=== PATIENT | female | born 1985 | race Caucasian/White ===

== ENCOUNTER 2017-12-08 08:26 | Inpatient (IN) | payer OTHER ==
[2017-12-08] VITALS (8 sets, daily range): BP systolic 112–174; BP diastolic 72–98; PULSE 84–120; TEMP 37.1–38.7; O2SAT 93–98; Ht 162.6 cm; Wt 126.1 kg
[~2017-12-08] VITALS: Ht 162.6 cm; Wt 126.1 kg
[~2017-12-08 08:26] MED LIST: CIPROFLOXACIN 400MG / 200ML D5W IV SCH
[2017-12-08] MEDS ORDERED: KETOROLAC TROMETHAMINE 30 MG/ML VIAL IV STA (09:22)
[2017-12-08] MEDS ORDERED: ONDANSETRON INJ 2 MG/ML 2 ML VIAL IV STA (09:22)
[2017-12-08 10:06] LABS: BASO % 0.1 %; BASO ABS # 0.01 K/uL (0-0.2); EOS % 0.3 %; EOS ABS # 0.04 K/uL (0-0.5); HEMATOCRIT 41.3 % (37-47); HEMOGLOBIN 14.4 g/dL (12.0-16.0); IG# 0.06 K/uL (0.00-0.02); LYMPH % 10.2 %; LYMPH ABS # 1.49 K/uL (1.2-3.4); MEAN CELL VOLUME 87.7 fL (80-100); MEAN CORPUSCULAR HEMOGLOBIN 30.6 pg (25-34); MEAN CORPUSCULAR HGB CONC 34.9 g/dl (32-36); MONO % 5.3 %; MONO ABS # 0.77 K/uL (0.11-0.59); NEUT % 83.7 %; PLATELET COUNT 270 K/uL (130-400); RED CELL DISTRIBUTION WIDTH CV 12.5 % (11.5-14.5); RED CELL DISTRIBUTION WIDTH SD 40.1 fL (36.4-46.3); WHITE BLOOD COUNT 14.57 K/uL (4.8-10.8)
--- NOTE | 2017-12-08 10:07 | DIAGNOSTIC IMAGING REPORT ---
CT OF THE ABDOMEN AND PELVIS WITHOUT CONTRAST, STONE PROTOCOL CLINICAL HISTORY: Right flank pain. COMPARISON STUDY: None. TECHNIQUE: Helical axial images of the abdomen and pelvis were obtained without IV or oral contrast according to renal stone protocol. A dose lowering technique was utilized adhering to the principles of ALARA. FINDINGS: Lung bases are clear. The gallbladder surgically absent. There is no biliary ductal dilatation. A 1.2 cm low-attenuation left adrenal nodule represents an adenoma. Unenhanced images of the spleen, right adrenal gland and pancreas are unremarkable. A cannulated screw within the proximal left femur is noted. There is sclerosis along the sacral and iliac aspects of both sacroiliac joints with gas within the sacroiliac joints. The findings may reflect sacroiliitis. Note is made of moderate to severe right hydronephrosis due to a large right ureteropelvic junction calculus. This could reflect one large calculus or 2 adjacent calculi. In aggregate, these measure 3 x 1.5 x 0.8 cm. There is minimal adjacent gas within the inferior right renal pelvis. There is moderate right perinephric infiltration. 3 punctate distal right ureteral calculi measure up to 2 mm. There are several punctate right renal calculi. There are no left ureteral calculi. There is no evidence for a bowel obstruction. The appendix is normal. IMPRESSION: Moderate to severe right hydroureteronephrosis due to a right ureteropelvic junction calculus/calculi that measure 3 x 1.5 x 0.8 cm in aggregate. Trace associated gas within the inferior right renal pelvis raises the possibility of superimposed infectious pyelitis. Moderate right perinephric infiltration. Three punctate distal right ureteral calculi. Electronically signed by: Constantino Hutchinson M.D. 12/08/2017 10:05 AM Dictated Date/Time: 12/08/2017 9:48 AM
[2017-12-08 10:21] LABS: CREATININE 0.85 mg/dl (0.60-1.20)
[2017-12-08] MEDS ORDERED: CEFTRIAXONE SOD INJ 1 GM ADDVIAL IV STA (10:35)
[2017-12-08] MEDS ORDERED: LABE100T23 PO (11:02)
[2017-12-08] MEDS ORDERED: SODIUM CHLORIDE 0.9% 1000ML 1,000 ML IV STA ×2 (11:03)
--- NOTE | 2017-12-08 12:12 | Urology Consultation ---
History General Date of Service: Dec 08, 2017. Chief Complaint: back pain, n/v Primary Care Physician: No Doctor, Assigned Pt seen a urologist before?: No History of Present Illness 32 yo female presents to [facility] with c/o low back pain and n/v this morning. Denies any dysuria or hematuria. CT on admission showing a large right UPJ calculus vs calculi with possible pyelitis. Possible small distal right ureteral stone as well. She has no previous hx of stones. She reports subjective f/c at home as well as n/v. Imaging Imaging: CT Laboratory Last 24 Hours Test 12/08/17 08:35 12/08/17 09:30 Urine Color YELLOW Urine Appearance CLEAR Urine pH 7.0 Urine Specific [place] 1.024 Urine Protein NEG Urine Glucose (UA) NEG Urine Ketones NEG Urine Occult Blood NEG Urine Nitrite POS Urine Bilirubin NEG Urine Urobilinogen NEG Urine Leukocyte Esterase NEG Urine WBC (Auto) 1-5 /hpf Urine RBC (Auto) 0-4 /hpf Urine Hyaline Casts (Auto) 1-5 /lpf Urine Epithelial Cells (Auto) >30 /lpf Urine Bacteria (Auto) 4+ Urine Test NEG White Blood Count 14.57 K/uL Red Blood Count 4.71 M/uL Hemoglobin 14.4 g/dL Hematocrit 41.3 % Mean Corpuscular Volume 87.7 fL Mean Corpuscular Hemoglobin 30.6 pg Mean Corpuscular Hemoglobin Concent 34.9 g/dl Platelet Count 270 K/uL Mean Platelet Volume 10.0 fL Neutrophils (%) (Auto) 83.7 % Lymphocytes (%) (Auto) 10.2 % Monocytes (%) (Auto) 5.3 % Eosinophils (%) (Auto) 0.3 % Basophils (%) (Auto) 0.1 % Neutrophils # (Auto) 12.20 K/uL Lymphocytes # (Auto) 1.49 K/uL Monocytes # (Auto) 0.77 K/uL Eosinophils # (Auto) 0.04 K/uL Basophils # (Auto) 0.01 K/uL RDW Standard Deviation 40.1 fL RDW Coefficient of Variation 12.5 % Immature Granulocyte % (Auto) 0.4 % Immature Granulocyte # (Auto) 0.06 K/uL Sodium Level 138 mmol/L Potassium Level 4.0 mmol/L Chloride Level 105 mmol/L Carbon Dioxide Level 25 mmol/L Anion Gap 8.0 mmol/L Blood Urea Nitrogen 13 mg/dl Creatinine 0.85 mg/dl Est Creatinine Clear Calc Drug Dose 122.6 ml/min Estimated GFR () 103.6 Estimated GFR (Non- 89.4 BUN/Creatinine Ratio 15.1 Random Glucose 127 mg/dl Calcium Level 9.0 mg/dl Problem List Medical Problems: (1) Hypertension Status: Chronic (2) Morbid obesity with BMI of 45.0-49.9, adult Status: Chronic (3) PCOS (polycystic ovarian syndrome) Status: Chronic Past History hypertension Past Surgical History: (x 3 ), cholecystectomy, orthopedic surgery ( screw placed in left hip) Family History diabetes, prostate cancer Social History Smoking: less than 1 pack/day (less than 1/2 pack per day per pt) Alcohol: never Drug use: none Marital status: in relationship (engaged ) Allergies Coded Allergies: No Known Allergies (Unverified , 12/08/17) Medications Home Medications: Home Meds and Scripts Medications Dose Route/Sig Max Daily Dose Days Date Category Labetalol Hcl 100 Mg Tab 50 Mg PO BID 12/08/17 Reported Inpatient Medications: Current Inpatient Medications Medications (Trade) Dose Ordered Sig/Michelle Route Start Time Stop Time Status Last Admin Dose Admin Sodium Chloride 1,000 ml @ 250 mls/hr Q4H STAT IV 12/08/17 11:03 12/08/17 15:02 Ciprofloxacin/ Dextrose (Cipro / D5W) 400 mg PREOP ONCE IV 12/08/17 12:00 12/08/17 12:01 UNV Review of Systems Review of Systems Constitutional: No fever, No chills Eyes: No double vision Neurological: No dizzy Endocrine: No excessive thirst Gastrointestinal: + nausea, + vomiting, No abdominal pain Cardiovascular: No chest pain Respiratory: No shortness of breath Skin: No rash Musculoskeletal: + back pain Female : No painful urination, No blood in urine Physical Exam Vital Signs: Vital Signs Past 12 Hours Date Time Temp Pulse Resp B/P (MAP) Pulse Ox O2 Delivery O2 Flow Rate FiO2 12/08/17 10:20 37.2 82 18 159/95 98 Room Air 12/08/17 08:28 36.8 58 18 191/101 99 Room Air Physical Exam: General Appearance: no apparent distress, + obese Eyes: bilateral eyes normal inspection ENT: hearing grossly normal Neck: no JVD Respiratory/Chest: no respiratory distress, no accessory muscle use Cardiovascular: no JVD Extremities: normal inspection Neurologic/Psychiatric: alert, normal mood/affect, oriented x 3 Skin: normal color Assessment & Plan Assessment & Plan Treatment Planned: cystoscopy w/ stent A/P: Large right UPJ calculus vs calculi; ? pyelitis The pt is currently afebrile. Stone aggregate too large to pass on own, and ? pyelitis on CT concerning for infection. Recommended she have a cystoscopy with right ureteral stent placement at this time. Risks and benefits of the procedure discussed with the pt. All questions answered. Pt agrees to the procedure at this time. Will obtain a pre-op chest x-ray and EKG. Urine and blood cultures pending. Will order Cipro pre-op. Thanks for the consult. Hopeful the pt will be able to be d/c'd home tomorrow. Will continue to follow along with primary service. ATTENDING: Patient seen and independently assessed. Reviewed imaging. Large right stone with emphysematous pyelitis. Risks and benefits discussed at length. Intermittent right flank pain for 1-2 months. NPO and consented for urgent cystoscopy with right stent placement. Patient agreeable and consented.
--- NOTE | 2017-12-08 12:33 | DIAGNOSTIC IMAGING REPORT ---
CHEST ONE VIEW PORTABLE HISTORY: pre-op COMPARISON: None. FINDINGS: There are low lung volumes. The heart is top normal in size. The lungs are clear. No pleural effusions. No pneumothorax. IMPRESSION: No acute process. Electronically signed by: Lalo Morris M.D. 12/08/2017 12:32 PM Dictated Date/Time: 12/08/2017 12:30 PM
[2017-12-08] MEDS ORDERED: ACET-1311 PO (12:37)
[2017-12-08] MEDS ORDERED: MoRPHine SULFATE 2 MG/ML CARP IV PRN (12:45)
[2017-12-08] MEDS ORDERED: POLYETHYLENE (MIRALAX) 17 GM PACK PO PRN (12:45)
[2017-12-08] MEDS ORDERED: ZOLPIDEM TARTRATE 5 MG TAB PO PRN ×2 (12:45)
[2017-12-08] MEDS ORDERED: ACETAMINOPHEN 325 MG TAB PO PRN (12:45)
[2017-12-08] MEDS ORDERED: MAGNESIUM HYDROXIDE SUSP 30 ML UDC PO PRN (12:45)
[2017-12-08] MEDS ORDERED: CEFEPIME IV 2,000 MG in DEXTROSE 5% 100ML 100 ML IV SCH (12:45)
[2017-12-08] MEDS ORDERED: ALUMINUM/MAGNESIUM/SIMETH (MAALOX MAX) 30 ML UDC PO PRN (12:45)
[2017-12-08] MEDS ORDERED: ONDANSETRON INJ 2 MG/ML 2 ML VIAL IV PRN ×2 (12:45→15:15)
[2017-12-08] MEDS ORDERED: Cysto-Conray II 17.2% 250ML BOTTLE ONE (13:16)
[2017-12-08] MEDS ORDERED: ONDANSETRON INJ 2 MG/ML 2 ML VIAL ONE (13:58)
[2017-12-08] MEDS ORDERED: DEXAMETHASONE SOD INJ 4 MG/ML VIAL ONE (13:58)
[2017-12-08] MEDS ORDERED: LIDOCAINE HCL 2% 2 ML VIAL (20MG/ML) ONE (13:58)
[2017-12-08] MEDS ORDERED: PROPOFOL IV EMULSION 10 MG/ML 20 ML VIAL IV ONE (13:58)
[2017-12-08] MEDS ORDERED: KETAMINE HCL INJ 50 MG/ML 10 ML VIAL ONE (13:59)
[2017-12-08] MEDS ORDERED: MIDAZOLAM HCL 1 MG/ML 2ML VIAL ONE (13:59)
[2017-12-08] MEDS ORDERED: FENTANYL CITRATE INJ 50 MCG/1 ML 2 ML VIAL ONE ×2 (13:59→14:29)
--- NOTE | 2017-12-08 14:41 | [facility] Operative Report ---
Operative Report Operative Date Dec 08, 2017. Pre-Operative Diagnosis Right Stone and Pyelonephritis Post-Operative Diagnosis Same Procedure(s) Performed Cystoscopy with Right Stent and aspiration Surgeon Ryan Estimated Blood Loss Minimal Findings Obstructed right collecting system Specimens Right Purulent Urine Renal Pelvis Drains 6 x 24 Double J on Right Anesthesia Type MAC Complication(s) none Disposition Recovery Room / PACU Indications Obstructing stone with air in collecting system. Patient agreeable and consented. Description of Procedure Patient was consented and brought back to the operating room. Patient was placed under anesthesia in the supine position and moved to the dorsal lithotomy position. Patient was prepped and draped in the regular sterile fashion. A time out was completed. A 30degree Cystoscope was placed into the bladder and the entire bladder was examined. The UO's were identified. The right was cannulized with a catheter and as aspiration of urine was completed. This was grossly purulent. The ureteral length was estimated. A wire was then placed. With the wire in place, a 6 x [24] Double J stent was placed. It was confirmed with fluoroscopy. With the stent in place, the bladder was emptied. The scope was removed. The patient was cleaned, aroused from anesthesia, and transferred to the pacu in stable condition having tolerated the procedure well with no complications. I was present and participated in all aspects of the procedure. The patient will be monitored in the PACU until transferred. I attest to the content of the Intraoperative Record and any orders documented therein. Any exceptions are noted below.
--- NOTE | 2017-12-08 14:42 | History and Physical ---
History & Physical Date & Time of Service: Dec 08, 2017 at 14:27 Chief Complaint: Fever, Vomiting, Lower Back And Abdominal Pain Primary Care Physician: No Doctor, Assigned History of Present Illness Source: patient, hospital records 52 years old female with past medical history of hypertension, morbid obesity, section 3 and cholecystectomy. Patient presented to the ED with severe right flank pain. She said that pain started about a month ago but was intermittent and mild in nature. Today she woke up from sleep with severe stabbing pain 10/10 associated with nausea/vomiting. She vomited once. Also had chills and fever. Denies any history of previous renal stones. Denies any burning sensation in the urine or blood, denies any urgency/frequency Plan of note upon my exam she was medicated and she did not have any abdominal or costovertebral angle tenderness Lives with her fianc Denies alcohol Use Currently active smoker. History of diabetes in her grandmother and mother. Past Medical/Surgical History Medical Problems: (1) Hypertension Status: Chronic (2) Morbid obesity with BMI of 45.0-49.9, adult Status: Chronic (3) PCOS (polycystic ovarian syndrome) Status: Chronic Surgical Problems: (1) History of section Status: Resolved (2) History of cholecystectomy Status: Resolved Social History Smoking Status: Current Every Day Smoker Marital Status: in relationship (engaged ) Allergies Coded Allergies: No Known Allergies (Unverified , 12/08/17) Home Medications Scheduled Labetalol Hcl (Labetalol Hcl), 25 MG PO QAM Miscellaneous Medications Acetaminophen (Tylenol), 650 MG PO Review of Systems Constitutional: + fever, + chills, + weakness, + fatigue Eyes: No worsening of vision, No eye pain, No redness, No discharge, No diplopia, No problem reported ENT: No hearing loss, No unusual epistaxis, No nasal symptoms, No sore throat, No tinnitus, No dental problems, No trouble swallowing, No problem reported Respiratory: No cough, No sputum, No wheezing, No shortness of breath, No dyspnea on exertion, No dyspnea at rest, No hemoptysis, No problem reported Cardiovascular: No chest pain, No orthopnea, No PND, No edema, No claudication , No palpitations, No problem reported Abdomen: + pain, + nausea, + vomiting, No diarrhea, No constipation, No GI bleeding, No problem reported Musculoskeletal: No joint pain, No muscle pain, No swelling, No calf pain, No problem reported Genitourinary - Female: No dysuria, No urinary frequency, No urinary urgency, No urinary incontinence, No urinary retention, No hematuria, No dysmenorrhea, No menorrhagia, No metrorrhagia, No rash, No vaginal bleeding, No vaginal discharge, No vaginal itching, No vulvodynia, No , No problem reported Neurologic: No memory loss, No paralysis, No weakness, No numbness/tingling, No vertigo, No balance problems, No problem reported Psychiatric: No depression symptoms, No anhedonism, No anxiety, No insomnia, No substance abuse, No problem reported Endocrine: No fatigue, No excessive thirst, No excessive urination, No problem reported Hematologic / Lymphatic: No abnormal bleeding/bruising, No clotting problems, No swollen lymph nodes, No night sweats, No problem reported Integumentary: No rash, No itch, No new/changing skin lesions, No color change , No bleeding, No problem reported Allergic / Immunologic: No environmental allergies, No seasonal allergies, No pet sensitivities, No food allergies, No hives, No frequent infections, No poor healing, No prolonged convalescence, No problem reported Physical Exam Vital Signs Date Time Temp Pulse Resp B/P (MAP) Pulse Ox O2 Delivery O2 Flow Rate FiO2 12/08/17 10:20 37.2 82 18 159/95 98 Room Air 12/08/17 08:28 36.8 58 18 191/101 99 Room Air General Appearance: + mild distress, + obese Head: normocephalic, atraumatic Eyes: normal inspection, EOMI ENT: normal ENT inspection, hearing grossly normal Neck: supple Respiratory/Chest: chest non-tender, lungs clear, normal breath sounds, no respiratory distress, no accessory muscle use Cardiovascular: regular rate, rhythm, no edema, no gallop, no JVD, no murmur, normal peripheral pulses Abdomen/GI: normal bowel sounds, non tender, soft, no organomegaly, no pulsatile mass Back: normal inspection, no CVA tenderness, no muscle spasm Extremities/Musculoskelatal: normal inspection, no calf tenderness, normal capillary refill, no pedal edema, normal range of motion Neurologic/Psych: repair miller II-XII nml as tested, no motor/sensory deficits, alert, normal mood/affect, normal reflexes, oriented x 3 Skin: normal color, warm/dry, no rash Diagnostics Laboratory Results Results Past 24 Hours Test 12/08/17 08:35 12/08/17 09:30 Range/Units Urine Color YELLOW Urine Appearance CLEAR CLEAR Urine pH 7.0 4.5-7.5 Urine Specific [place] 1.024 1.000-1.030 Urine Protein NEG NEG Urine Glucose (UA) NEG NEG Urine Ketones NEG NEG Urine Occult Blood NEG NEG Urine Nitrite POS NEG Urine Bilirubin NEG NEG Urine Urobilinogen NEG NEG Urine Leukocyte Esterase NEG NEG Urine WBC (Auto) 1-5 0-5 /hpf Urine RBC (Auto) 0-4 0-4 /hpf Urine Hyaline Casts (Auto) 1-5 0-5 /lpf Urine Epithelial Cells (Auto) >30 0-5 /lpf Urine Bacteria (Auto) 4+ NEG Urine Test NEG NEG White Blood Count 14.57 4.8-10.8 K/uL Red Blood Count 4.71 4.2-5.4 M/uL Hemoglobin 14.4 12.0-16.0 g/dL Hematocrit 41.3 37-47 % Mean Corpuscular Volume 87.7 80-100 fL Mean Corpuscular Hemoglobin 30.6 25-34 pg Mean Corpuscular Hemoglobin Concent 34.9 32-36 g/dl Platelet Count 270 130-400 K/uL Mean Platelet Volume 10.0 7.4-10.4 fL Neutrophils (%) (Auto) 83.7 % Lymphocytes (%) (Auto) 10.2 % Monocytes (%) (Auto) 5.3 % Eosinophils (%) (Auto) 0.3 % Basophils (%) (Auto) 0.1 % Neutrophils # (Auto) 12.20 1.4-6.5 K/uL Lymphocytes # (Auto) 1.49 1.2-3.4 K/uL Monocytes # (Auto) 0.77 0.11-0.59 K/uL Eosinophils # (Auto) 0.04 0-0.5 K/uL Basophils # (Auto) 0.01 0-0.2 K/uL RDW Standard Deviation 40.1 36.4-46.3 fL RDW Coefficient of Variation 12.5 11.5-14.5 % Immature Granulocyte % (Auto) 0.4 % Immature Granulocyte # (Auto) 0.06 0.00-0.02 K/uL Sodium Level 138 136-145 mmol/L Potassium Level 4.0 3.5-5.1 mmol/L Chloride Level 105 98-107 mmol/L Carbon Dioxide Level 25 21-32 mmol/L Anion Gap 8.0 3-11 mmol/L Blood Urea Nitrogen 13 7-18 mg/dl Creatinine 0.85 0.60-1.20 mg/dl Est Creatinine Clear Calc Drug Dose 122.6 ml/min Estimated GFR () 103.6 Estimated GFR (Non- 89.4 BUN/Creatinine Ratio 15.1 10-20 Random Glucose 127 70-99 mg/dl Calcium Level 9.0 8.5-10.1 mg/dl Microbiology Results 12/08/17 Blood Culture, Received Pending 12/08/17 Blood Culture, Received Pending 12/08/17 Urine Culture, Received Pending Impression Assessment and Plan 52-year-old female with past medical history of hypertension, morbid obesity, cholecystectomy, section 3 tobacco abuse presented to the hospital on 12/08/2017 with right flank pain and chills Assessment Obstructive uropathy, 3 x 1.5 by 0.8 centimeter calculi/calculus with severe right hydronephrosis Sepsis present on admission secondary to below Complicated UTI present on admission Right pyelonephritis/some gas was detected on CAT scan, raising the question of emphysematous pyelonephritis Hypertension/essential Morbid obesity with clinically suspected obstructive sleep apnea Sinus Bradycardia likely secondary to labetalol History of cholecystectomy Stress section 3 History of left hip dislocation in childhood status post nuria fixation History of polycystic ovary syndrome Tobacco abuse Plan Patient clinically does not appear to be very sick, I doubt emphysematous pyelonephritis but will empirically treat her with cefepime IV fluid hydration Patient urology consult, will go for urgent stent Continue labetalol for now and monitor blood pressure/heart rate Check hemoglobin A1c rule out underlying diabetes Blood cultures/urine culture Probiotics SCD boot/heparin for DVT prophylaxis VTE Prophylaxis VTE Risk Assessment Done? Y/N: Yes Risk Level: Moderate
--- NOTE | 2017-12-08 14:48 | EMERGENCY ROOM VISIT NOTE ---
History First contact with patient: 08:55 Chief Complaint: VOMITING Stated Complaint: FEVER, VOMITING, LOWER BACK AND ABDOMINAL PAIN Nursing Triage Summary: Pt reports right flank and right lower abd pain x 1 mo. Cold Chills. Emesis this morning. Denies nausea at present time. Denies urinary s/sx. History of Present Illness Patient is a 32-year-old white female who presents to emergency department for evaluation of right lower quadrant abdominal pain radiating to her right back. She has had symptoms for the last several weeks, she reports about a month. She states her last menstrual period was 09/23/2017. She does have a history of PCOS. She reports that she took home tests which were negative. She reports loose bowel movements, denies any urinary symptoms, no vaginal discharge or concerns for sexually transmitted infections. Today, at 2:00 in the morning, she states the pain woke her from sleep. She had hot and cold flashes and reports that she vomited once just prior to arrival. She rates her pain a 9/10 presently. She is status post cholecystectomy. She denies any personal or family history of kidney stones. She had tried taking Tylenol and naproxen for her symptoms over the last several weeks with minimal relief. Review of Systems Review of systems as per HPI. All other systems reviewed were negative. 10 systems reviewed. Past Medical/Surgical History Medical Problems: (1) Hypertension (2) Morbid obesity with BMI of 45.0-49.9, adult (3) PCOS (polycystic ovarian syndrome) (4) Pyelonephritis (5) UTI (urinary tract infection) Surgical Problems: (1) History of section (2) History of cholecystectomy Electronic medical records are reviewed and summarized as above/below. See Problem List. Social History Smoking Status: Current Every Day Smoker Alcohol Use: none Marital Status: in relationship Housing Status: lives with significant other Occupation Status: employed Current/Historical Medications Scheduled Labetalol Hcl (Labetalol Hcl), 25 MG PO QAM Miscellaneous Medications Acetaminophen (Tylenol), 650 MG PO Physical Exam Vital Signs Date Time Temp Pulse Resp B/P (MAP) Pulse Ox O2 Delivery O2 Flow Rate FiO2 12/08/17 10:20 37.2 82 18 159/95 98 Room Air 12/08/17 08:28 36.8 58 18 191/101 99 Room Air Physical Exam CONSTITUTIONAL: Patient is a morbidly obese 32-year-old white female who is awake and alert and in no acute distress. EYES: Pupils equal, round, reactive to light and accommodation. EOMs intact without nystagmus. Sclera are anicteric. ENT: Tympanic membranes intact, with normal landmarks. External canals are clear. Oral and nasopharynx are clear. Mucous membranes are moist, no lesions , tongue and gums appear normal. NECK: No bruits auscultated. Supple without lymphadenopathy. No thyromegaly. No meningeal signs. Full active range of motion without discomfort. CARDIOVASCULAR: Regular rate and rhythm, with normal S1 and S2, no murmur or gallop or rub is heard. No carotid bruits auscultated. No JVD. Peripheral pulses easily palpable. RESPIRATORY: Breath sounds equal and clear to auscultation without wheezes, rales, or rhonchi heard. Full and equal chest expansion without accessory muscle use or retractions. ABDOMEN: Bowel sounds are present. Well-healed surgical scars are noted. Abdomen is soft, obese, mildly tender in the right mid abdomen, without guarding , rebound or rigidity. INTEGUMENTARY: No lesions or rash, normal skin turgor. LYMPH: No lymphadenopathy. Medical Decision & Procedures ER Provider Diagnostic Interpretation: CT OF THE ABDOMEN AND PELVIS WITHOUT CONTRAST, STONE PROTOCOL CLINICAL HISTORY: Right flank pain. COMPARISON STUDY: None. TECHNIQUE: Helical axial images of the abdomen and pelvis were obtained without IV or oral contrast according to renal stone protocol. A dose lowering technique was utilized adhering to the principles of ALARA. FINDINGS: Lung bases are clear. The gallbladder surgically absent. There is no biliary ductal dilatation. A 1.2 cm low-attenuation left adrenal nodule represents an adenoma. Unenhanced images of the spleen, right adrenal gland and pancreas are unremarkable. A cannulated screw within the proximal left femur is noted. There is sclerosis along the sacral and iliac aspects of both sacroiliac joints with gas within the sacroiliac joints. The findings may reflect sacroiliitis. Note is made of moderate to severe right hydronephrosis due to a large right ureteropelvic junction calculus. This could reflect one large calculus or 2 adjacent calculi. In aggregate, these measure 3 x 1.5 x 0.8 cm. There is minimal adjacent gas within the inferior right renal pelvis. There is moderate right perinephric infiltration. 3 punctate distal right ureteral calculi measure up to 2 mm. There are several punctate right renal calculi. There are no left ureteral calculi. There is no evidence for a bowel obstruction. The appendix is normal. IMPRESSION: Moderate to severe right hydroureteronephrosis due to a right ureteropelvic junction calculus/calculi that measure 3 x 1.5 x 0.8 cm in aggregate. Trace associated gas within the inferior right renal pelvis raises the possibility of superimposed infectious pyelitis. Moderate right perinephric infiltration. Three punctate distal right ureteral calculi. Laboratory Results 12/08/17 09:30 Red Blood Count 4.71, Mean Corpuscular Volume 87.7, Mean Corpuscular Hemoglobin 30.6, Mean Corpuscular Hemoglobin Concent 34.9, Mean Platelet Volume 10.0, Neutrophils (%) (Auto) 83.7, Lymphocytes (%) (Auto) 10.2, Monocytes (%) (Auto) 5.3, Eosinophils (%) (Auto) 0.3, Basophils (%) (Auto) 0.1, Neutrophils # (Auto) 12.20, Lymphocytes # (Auto) 1.49, Monocytes # (Auto) 0.77, Eosinophils # (Auto) 0.04, Basophils # (Auto) 0.01 12/08/17 09:30 Test 12/08/17 08:35 12/08/17 09:30 Urine Color YELLOW Urine Appearance CLEAR (CLEAR) Urine pH 7.0 (4.5-7.5) Urine Specific [place] 1.024 (1.000-1.030) Urine Protein NEG (NEG) Urine Glucose (UA) NEG (NEG) Urine Ketones NEG (NEG) Urine Occult Blood NEG (NEG) Urine Nitrite POS (NEG) Urine Bilirubin NEG (NEG) Urine Urobilinogen NEG (NEG) Urine Leukocyte Esterase NEG (NEG) Urine WBC (Auto) 1-5 /hpf (0-5) Urine RBC (Auto) 0-4 /hpf (0-4) Urine Hyaline Casts (Auto) 1-5 /lpf (0-5) Urine Epithelial Cells (Auto) >30 /lpf (0-5) Urine Bacteria (Auto) 4+ (NEG) Urine Test NEG (NEG) White Blood Count 14.57 K/uL (4.8-10.8) Red Blood Count 4.71 M/uL (4.2-5.4) Hemoglobin 14.4 g/dL (12.0-16.0) Hematocrit 41.3 % (37-47) Mean Corpuscular Volume 87.7 fL (80-100) Mean Corpuscular Hemoglobin 30.6 pg (25-34) Mean Corpuscular Hemoglobin Concent 34.9 g/dl (32-36) Platelet Count 270 K/uL (130-400) Mean Platelet Volume 10.0 fL (7.4-10.4) Neutrophils (%) (Auto) 83.7 % Lymphocytes (%) (Auto) 10.2 % Monocytes (%) (Auto) 5.3 % Eosinophils (%) (Auto) 0.3 % Basophils (%) (Auto) 0.1 % Neutrophils # (Auto) 12.20 K/uL (1.4-6.5) Lymphocytes # (Auto) 1.49 K/uL (1.2-3.4) Monocytes # (Auto) 0.77 K/uL (0.11-0.59) Eosinophils # (Auto) 0.04 K/uL (0-0.5) Basophils # (Auto) 0.01 K/uL (0-0.2) RDW Standard Deviation 40.1 fL (36.4-46.3) RDW Coefficient of Variation 12.5 % (11.5-14.5) Immature Granulocyte % (Auto) 0.4 % Immature Granulocyte # (Auto) 0.06 K/uL (0.00-0.02) Anion Gap 8.0 mmol/L (3-11) Est Creatinine Clear Calc Drug Dose 122.6 ml/min Estimated GFR () 103.6 Estimated GFR (Non- 89.4 BUN/Creatinine Ratio 15.1 (10-20) Calcium Level 9.0 mg/dl (8.5-10.1) Medications Administered Medications (Trade) Dose Ordered Sig/Michelle Route Start Time Stop Time Status Last Admin Dose Admin Ketorolac Tromethamine (Toradol Inj) 30 mg NOW STAT IV 12/08/17 09:22 12/08/17 09:24 DC 12/08/17 09:35 30 MG Ondansetron HCl (Zofran Inj) 4 mg NOW STAT IV 12/08/17 09:22 12/08/17 09:24 DC 12/08/17 09:34 4 MG Ceftriaxone Sodium (Rocephin Inj) 1 gm NOW STAT IV 12/08/17 10:35 12/08/17 10:36 DC 12/08/17 11:08 1 GM Sodium Chloride 1,000 ml @ 999 mls/hr Q1H1M STAT IV 12/08/17 11:03 12/08/17 12:03 DC 12/08/17 11:08 999 MLS/HR ED Course The patient was seen and evaluated as above. She has no old records at our facility for review. She presents the emergency department for evaluation of a several week history of right back and flank pain, with associated nausea and vomiting acutely today. She is afebrile and hemodynamically stable. IV lock was initiated and she was hydrated with normal saline solution. Laboratory studies were collected including CBC with differential, BMP and urinalysis. Urine negative CT tests have been performed and was negative. The patient was medicated with Toradol 30 mg and Zofran 4 mg IV. Given her right flank pain, CT scan of the abdomen and pelvis without contrast was ordered. Patient's urinalysis was positive for nitrates and 4+ bacteria. Urine culture was ordered given her symptoms, and is pending. She has a white count of 14,500 , with left shift and bandemia. H&H is normal. Band and creatinine are 13 and 0.85, electrolytes are without gross abnormality. Given the findings on urinalysis and leukocytosis, the patient was given ceftriaxone [address] scan of the abdomen and pelvis noted moderate to severe right hydroureteronephrosis due to a right ureteropelvic junction calculus/calculi measuring 3 x 1.5 x 0.8 cm in aggregate. There was trace associated gas within the right renal pelvis, moderate right perinephritic infiltration, concern for a superimposed infectious etiology was discussed. She does also have 3 punctate distal right ureteral calculi. All laboratory and diagnostic imaging studies were reviewed with attending physician, and discussed thoroughly with the patient. I was able discuss the patient with FELICITAS Rodriguez, with urology, who asked that the patient he made nothing by mouth and admitted to medicine. She came to the emergency department and assessed the patient, and the patient will be taken to the OR by Dr. Davis for cystoscopy and likely stenting. I did also discuss the patient with the [facility] Hospitalist, Dr. Hawkins, who placed admission orders. The patient remained hemodynamically stable, pending the OR per urology. Differential diagnoses entertained included UTI, pyelonephritis, renal colic, ovarian cyst, ovarian torsion, , ectopic , PID, tubo-ovarian abscess, appendicitis, bowel obstruction, perforation, among others. Medical Decision See ED Course. [place] Drug Monitoring Program Search Results: patient reviewed within database, no issues identified Medication Reconcilliation Current Medication List: was personally reviewed by me Blood Pressure Screening Patient's blood pressure: Elevated blood pressure Blood pressure disposition: Elevated BP felt to be situational Impression Primary Impression: Right ureteral calculus Additional Impression: Pyelonephritis Departure Information Dispostion Being Evaluated By Surgeon Referrals No Doctor, Assigned (PCP) Patient Instructions My [facility] Problem Qualifiers
--- NOTE | 2017-12-08 14:56 | DIAGNOSTIC IMAGING REPORT ---
KUB CLINICAL HISTORY: 32 years-old Female presenting with RT SIDE STENT PLACEMENT. TECHNIQUE: 2 fluoroscopic spot image(s) obtained as part of an intraoperative procedure. COMPARISON: CT performed earlier the same day. FINDINGS/IMPRESSION: A right double-J ureteral stent has been placed. Please see surgical report for further details. Dose area product (mGy.cm^2): 2779.3. Fluoroscopy time: 20.7 seconds. Number of fluoroscopic spot images: 2. Electronically signed by: Santos Banerjee M.D. 12/08/2017 2:55 PM Dictated Date/Time: 12/08/2017 2:54 PM
--- NOTE | 2017-12-08 15:03 | Anesthesiology Progress Note ---
Anesthesia Post Op Note Date & Time Dec 08, 2017 at 15:03 Vital Signs Vital Signs Past 12 Hours Date Time Temp Pulse Resp B/P (MAP) Pulse Ox O2 Delivery O2 Flow Rate FiO2 12/08/17 14:55 119 18 152/93 96 Room Air 12/08/17 14:47 37.6 119 18 128/90 96 Room Air 12/08/17 10:20 37.2 82 18 159/95 98 Room Air 12/08/17 08:28 36.8 58 18 191/101 99 Room Air Notes Mental Status: alert / awake / arousable, participated in evaluation Pt Amnestic to Procedure: Yes Nausea / Vomiting: adequately controlled Pain: adequately controlled Airway Patency, RR, SpO2: stable & adequate BP & HR: stable & adequate Hydration State: stable & adequate Anesthetic Complications: no major complications apparent
[2017-12-08] MEDS ORDERED: ATROPINE SULFATE 0.1 MG/ML 5ML SYR IV PRN (15:15)
[2017-12-08] MEDS ORDERED: FENTANYL CITRATE INJ 50 MCG/1 ML 2 ML VIAL IV PRN (15:15)
[2017-12-08] MEDS ORDERED: LABETALOL HCL IV 5 MG/ML 20ML IV PRN (15:15)
[2017-12-08 16:52] LABS: INR 0.9 (0.9-1.1)
[2017-12-08] MEDS: SODIUM CHLORIDE 0.9% 1000ML 1,000 ML IV SCH (18:20)
[2017-12-08] MEDS: CEFEPIME IV 2,000 MG in SYRINGE 7.5 ML IV SCH (18:20)
[2017-12-08] MEDS: LACTOBACILLUS ACIDOPHILUS (FLORANEX) TAB PO SCH (18:21)
[2017-12-08] MEDS: ACETAMINOPHEN 325 MG TAB PO PRN (19:53)
[2017-12-08] MEDS: HEPARIN SOD 5000 UNIT/0.5 ML CARP SQ SCH (22:42)
[2017-12-09] VITALS (8 sets, daily range): BP systolic 136–175; BP diastolic 81–99; PULSE 95–115; TEMP 36.8–39.3; O2SAT 93–97
[2017-12-09] MEDS: CEFEPIME IV 2,000 MG in SYRINGE 7.5 ML IV SCH ×3 (00:45→16:38)
[2017-12-09] MEDS: ACETAMINOPHEN 325 MG TAB PO PRN (04:18)
[2017-12-09] MEDS: HEPARIN SOD 5000 UNIT/0.5 ML CARP SQ SCH ×3 (05:29→21:35)
--- NOTE | 2017-12-09 08:04 | Progress Note ---
Subjective Date of Service: Dec 09, 2017. Subjective Pt evaluation today including: conversation w/ patient, chart review, lab review Voiding: no voiding problems 32 yo female s/p right ureteral stent placement yesterday. Pt reports she feels good this morning. States she only has some right flank pain when lying on that side. Denies n/v. + gross hematuria. She is noted to be febrile and blood cultures are preliminarily positive despite her feeling so well. UC&S pending. Problem List Medical Problems: (1) Hypertension Status: Chronic (2) Morbid obesity with BMI of 45.0-49.9, adult Status: Chronic (3) PCOS (polycystic ovarian syndrome) Status: Chronic (4) Right ureteral calculus Status: Acute Review of Systems Constitutional: + fever, No chills Respiratory: No shortness of breath Cardiac: No chest pain Abdomen: No pain, No nausea, No vomiting Female : + hematuria Heme: No abnormal bleeding/bruising Objective Vital Signs Date Time Temp Pulse Resp B/P (MAP) Pulse Ox O2 Delivery O2 Flow Rate FiO2 12/09/17 05:20 38.6 99 18 150/86 (107) 96 Room Air 12/09/17 04:11 38.5 108 16 164/81 (108) 95 Room Air 12/09/17 00:45 Room Air 12/08/17 22:52 37.3 84 18 112/72 (85) 97 Room Air 12/08/17 21:51 37.1 12/08/17 19:00 37.6 108 16 114/73 (87) 98 Room Air 12/08/17 17:59 38.2 120 18 137/81 (99) 97 Room Air 12/08/17 17:05 38.2 92 18 125/79 (94) 98 Room Air 12/08/17 16:30 38.7 101 18 137/86 (103) 97 Room Air 12/08/17 16:00 93 Room Air 12/08/17 16:00 37.2 20 174/98 93 Room Air 12/08/17 15:30 37.4 101 18 141/91 96 Room Air 12/08/17 15:15 37.4 107 18 157/91 96 Room Air 12/08/17 15:05 109 18 139/86 95 Room Air 12/08/17 14:55 119 18 152/93 96 Room Air 12/08/17 14:47 37.6 119 18 128/90 96 Room Air 12/08/17 10:20 37.2 82 18 159/95 98 Room Air 12/08/17 08:28 36.8 58 18 191/101 99 Room Air Physical Exam General Appearance: no apparent distress, + obese Eyes: normal inspection ENT: hearing grossly normal Neck: no JVD Respiratory/Chest: no respiratory distress, no accessory muscle use Cardiovascular: no JVD Extremities: normal inspection Neurologic/Psychiatric: alert, normal mood/affect, oriented x 3 Skin: normal color Laboratory Results Last 24 Hours Test 12/08/17 08:35 12/08/17 09:30 12/09/17 04:44 Urine Color YELLOW Urine Appearance CLEAR Urine pH 7.0 Urine Specific [place] 1.024 Urine Protein NEG Urine Glucose (UA) NEG Urine Ketones NEG Urine Occult Blood NEG Urine Nitrite POS Urine Bilirubin NEG Urine Urobilinogen NEG Urine Leukocyte Esterase NEG Urine WBC (Auto) 1-5 /hpf Urine RBC (Auto) 0-4 /hpf Urine Hyaline Casts (Auto) 1-5 /lpf Urine Epithelial Cells (Auto) >30 /lpf Urine Bacteria (Auto) 4+ Urine Test NEG White Blood Count 14.57 K/uL Red Blood Count 4.71 M/uL Hemoglobin 14.4 g/dL Hematocrit 41.3 % Mean Corpuscular Volume 87.7 fL Mean Corpuscular Hemoglobin 30.6 pg Mean Corpuscular Hemoglobin Concent 34.9 g/dl Platelet Count 270 K/uL Mean Platelet Volume 10.0 fL Neutrophils (%) (Auto) 83.7 % Lymphocytes (%) (Auto) 10.2 % Monocytes (%) (Auto) 5.3 % Eosinophils (%) (Auto) 0.3 % Basophils (%) (Auto) 0.1 % Neutrophils # (Auto) 12.20 K/uL Lymphocytes # (Auto) 1.49 K/uL Monocytes # (Auto) 0.77 K/uL Eosinophils # (Auto) 0.04 K/uL Basophils # (Auto) 0.01 K/uL RDW Standard Deviation 40.1 fL RDW Coefficient of Variation 12.5 % Immature Granulocyte % (Auto) 0.4 % Immature Granulocyte # (Auto) 0.06 K/uL Prothrombin Time 9.5 SECONDS Prothromb Time International Ratio 0.9 Sodium Level 138 mmol/L Potassium Level 4.0 mmol/L Chloride Level 105 mmol/L Carbon Dioxide Level 25 mmol/L Anion Gap 8.0 mmol/L Blood Urea Nitrogen 13 mg/dl Creatinine 0.85 mg/dl Est Creatinine Clear Calc Drug Dose 122.6 ml/min Estimated GFR () 103.6 Estimated GFR (Non- 89.4 BUN/Creatinine Ratio 15.1 Random Glucose 127 mg/dl Calcium Level 9.0 mg/dl Assessment and Plan POD #1 s/p right ureteral stent placement Pt doing well despite fevers this morning. Recommend she remain inpatient until culture sensitivities return and she has remained afebrile for 24hrs. Continue IV abx pending culture sensitivities. Will need transitioned to 14 days of oral abx such as Cipro or Bactrim prior to d/c home. Definitive management of large stone once infection has been adequately treated. Will check a KUB while inpatient. Will continue to follow along with primary service. Continued [facility] stay due to: fever
[2017-12-09 08:17] LABS: BASO % 0.1 %; BASO ABS # 0.01 K/uL (0-0.2); EOS % 0.3 %; EOS ABS # 0.04 K/uL (0-0.5); HEMATOCRIT 36.1 % (37-47); HEMOGLOBIN 12.1 g/dL (12.0-16.0); IG# 0.05 K/uL (0.00-0.02); LYMPH % 10.6 %; LYMPH ABS # 1.23 K/uL (1.2-3.4); MEAN CELL VOLUME 89.1 fL (80-100); MEAN CORPUSCULAR HEMOGLOBIN 29.9 pg (25-34); MEAN CORPUSCULAR HGB CONC 33.5 g/dl (32-36); MEAN PLATELET VOLUME 9.9 fL (7.4-10.4); MONO % 6.8 %; MONO ABS # 0.79 K/uL (0.11-0.59); NEUT % 81.8 %; NEUT ABS # 9.43 K/uL (1.4-6.5); PLATELET COUNT 185 K/uL (130-400); RED CELL DISTRIBUTION WIDTH CV 12.7 % (11.5-14.5); RED CELL DISTRIBUTION WIDTH SD 41.2 fL (36.4-46.3); WHITE BLOOD COUNT 11.55 K/uL (4.8-10.8)
[2017-12-09] MEDS ORDERED: HYDROCODONE/ACETAMIN 5/325MG TAB PO PRN (08:30)
[2017-12-09] MEDS ORDERED: KETOROLAC TROMETHAMINE 30 MG/ML VIAL IV PRN (08:30)
--- NOTE | 2017-12-09 08:32 | Anesthesiology Progress Note ---
Anesthesia Post Op Note Date & Time Dec 09, 2017 at 08:31 Vital Signs Pain Intensity: 2 Vital Signs Past 12 Hours Date Time Temp Pulse Resp B/P (MAP) Pulse Ox O2 Delivery O2 Flow Rate FiO2 12/09/17 05:20 38.6 99 18 150/86 (107) 96 Room Air 12/09/17 04:11 38.5 108 16 164/81 (108) 95 Room Air 12/09/17 00:45 Room Air 12/08/17 22:52 37.3 84 18 112/72 (85) 97 Room Air 12/08/17 21:51 37.1 Notes Mental Status: alert / awake / arousable Pt Amnestic to Procedure: Yes Nausea / Vomiting: adequately controlled Pain: adequately controlled Airway Patency, RR, SpO2: stable & adequate BP & HR: stable & adequate Hydration State: stable & adequate Anesthetic Complications: no major complications apparent
[2017-12-09] MEDS: SODIUM CHLORIDE 0.9% 1000ML 1,000 ML IV SCH ×2 (08:45→21:27)
[2017-12-09] MEDS: LACTOBACILLUS ACIDOPHILUS (FLORANEX) TAB PO SCH ×3 (08:45→18:17)
[2017-12-09] MEDS: LABETALOL HCL 100 MG TAB PO SCH (08:48)
[2017-12-09 08:53] LABS: ALBUMIN 2.7 gm/dl (3.4-5.0); CALCIUM 8.2 mg/dl (8.5-10.1); CREATININE 0.79 mg/dl (0.60-1.20); POTASSIUM 3.7 mmol/L (3.5-5.1)
[2017-12-09 08:56] LABS: TOTAL PROTEIN 6.2 gm/dl (6.4-8.2)
[2017-12-09 09:10] LABS: HEMOGLOBIN A1C 5.8 % (4.5-5.6)
--- NOTE | 2017-12-09 10:17 | DIAGNOSTIC IMAGING REPORT ---
KUB HISTORY: right ureteral stones COMPARISON: Abdomen and pelvis CT 12/08/2017. FINDINGS: The bowel gas pattern is unremarkable. There are no dilated loops of small bowel to suggest an obstruction. Interval placement of a right ureteral stent which is likely in good position. Cluster of stones seen within the right kidney with the largest measuring 7 mm. This may have represented the stones at the ureteropelvic junction seen on the prior study. There is a small amount of residual contrast within the right renal collecting system. Punctate calcification adjacent to the distal right ureteral stent may represent the patient's UVJ stone. Additional calcifications in the deep pelvis likely represent pelvis. No left renal calculi identified. No pneumoperitoneum or pneumatosis. IMPRESSION: 1. Interval placement of a right ureteral stent which is likely in good position. 2. Cluster of stones within the right kidney with the largest measuring 7 mm. These stones may have represented the stones at the ureteropelvic junction seen on the prior study. 3. Punctate stone within the right ureterovesical junction. Electronically signed by: Lalo Morris M.D. 12/09/2017 10:16 AM Dictated Date/Time: 12/09/2017 10:13 AM
[2017-12-09] MEDS ORDERED: ACETAMINOPHEN 500 MG TAB PO ONE (15:12)
[2017-12-09] MEDS ORDERED: OXYCODONE HCL IR 5 MG TAB (IMMEDIATE RELEASE) PO PRN (15:15)
--- NOTE | 2017-12-09 16:57 | Progress Note ---
Subjective Date of Service: Dec 09, 2017. Subjective Pt evaluation today including: conversation w/ patient, physical exam, chart review, lab review, review of studies (CT abd/pelvis ), review of inpatient medication list Pain: right kidney region - mild PO Intake: good Voiding: no voiding problems (mild hematuria today) overall feels better but still having fevers/mild chills no dysuria no back pain but reports CVA pain on right no prior h/o kidney stone Problem List Medical Problems: (1) Hypertension Status: Chronic (2) Morbid obesity with BMI of 45.0-49.9, adult Status: Chronic (3) PCOS (polycystic ovarian syndrome) Status: Chronic (4) Right ureteral calculus Status: Acute Review of Systems Constitutional: + fever, + chills Respiratory: No shortness of breath Cardiac: No chest pain Abdomen: No nausea, No vomiting Objective Vital Signs Date Time Temp Pulse Resp B/P (MAP) Pulse Ox O2 Delivery O2 Flow Rate FiO2 12/09/17 16:30 38.3 99 18 156/89 (111) 93 Room Air 12/09/17 15:40 Room Air 12/09/17 15:29 38.1 111 18 167/94 (118) 94 Room Air 12/09/17 15:03 39.3 115 20 175/99 (124) 94 Room Air 12/09/17 08:38 37.4 95 18 136/86 (103) 97 Room Air 12/09/17 08:00 Room Air 12/09/17 05:20 38.6 99 18 150/86 (107) 96 Room Air 12/09/17 04:11 38.5 108 16 164/81 (108) 95 Room Air 12/09/17 00:45 Room Air 12/08/17 22:52 37.3 84 18 112/72 (85) 97 Room Air 12/08/17 21:51 37.1 12/08/17 19:00 37.6 108 16 114/73 (87) 98 Room Air 12/08/17 17:59 38.2 120 18 137/81 (99) 97 Room Air 12/08/17 17:05 38.2 92 18 125/79 (94) 98 Room Air Physical Exam General Appearance: no apparent distress, + obese, + pertinent finding ( hirsute features) ENT: pharynx normal Neck: no JVD Respiratory/Chest: lungs clear, no respiratory distress, no accessory muscle use Cardiovascular: regular rate, rhythm, no gallop, no murmur Abdomen: normal bowel sounds, soft, no organomegaly, + tenderness (right CVA/ kidney) Extremities: no pedal edema Neurologic/Psychiatric: alert, oriented x 3 Skin: + pertinent finding (acanthosis nigricans on neck) Laboratory Results Last 24 Hours Test 12/09/17 07:57 White Blood Count 11.55 K/uL Red Blood Count 4.05 M/uL Hemoglobin 12.1 g/dL Hematocrit 36.1 % Mean Corpuscular Volume 89.1 fL Mean Corpuscular Hemoglobin 29.9 pg Mean Corpuscular Hemoglobin Concent 33.5 g/dl Platelet Count 185 K/uL Mean Platelet Volume 9.9 fL Neutrophils (%) (Auto) 81.8 % Lymphocytes (%) (Auto) 10.6 % Monocytes (%) (Auto) 6.8 % Eosinophils (%) (Auto) 0.3 % Basophils (%) (Auto) 0.1 % Neutrophils # (Auto) 9.43 K/uL Lymphocytes # (Auto) 1.23 K/uL Monocytes # (Auto) 0.79 K/uL Eosinophils # (Auto) 0.04 K/uL Basophils # (Auto) 0.01 K/uL RDW Standard Deviation 41.2 fL RDW Coefficient of Variation 12.7 % Immature Granulocyte % (Auto) 0.4 % Immature Granulocyte # (Auto) 0.05 K/uL Sodium Level 139 mmol/L Potassium Level 3.7 mmol/L Chloride Level 107 mmol/L Carbon Dioxide Level 26 mmol/L Anion Gap 6.0 mmol/L Blood Urea Nitrogen 11 mg/dl Creatinine 0.79 mg/dl Est Creatinine Clear Calc Drug Dose 131.9 ml/min Estimated GFR () 113.2 Estimated GFR (Non- 97.7 BUN/Creatinine Ratio 13.4 Random Glucose 103 mg/dl Estimated Average Glucose 120 mg/dl Hemoglobin A1c 5.8 % Calcium Level 8.2 mg/dl Total Bilirubin 0.8 mg/dl Aspartate Amino Transf (AST/SGOT) 12 U/L Alanine Aminotransferase (ALT/SGPT) 29 U/L Alkaline Phosphatase 88 U/L Total Protein 6.2 gm/dl Albumin 2.7 gm/dl Globulin 3.5 gm/dl Albumin/Globulin Ratio 0.8 Assessment and Plan 32yo female - 1. e. coli UTI, right-sided pyelonephritis with possible pyelitis, and e. coli septicemia - continue cefepime. Repeat blood cx's X 2 today to ensure test of cure/sterility. Continue IVF, daily labs, pain control. Appreciate urology consultation and placement of right-sided stent. 2. large right-sided obstructing stone(s) - s/p stent placement, POD #1. Definitive stone treatment as an outpatient. 3. PCOS / evidence of insulin resistance / pre-T2DM - playground monitor consult for nutritional counseling to help beck off full-blown T2DM. 4. DVT proph - heparin TID. 5. FEN - continue IVF, repeat BMP am, diet as tolerated. 6. HTN - continue labetalol; adjust as needed. Continued [facility] stay due to: fever, multiple IV medications needed, other ( bacteremia)
[2017-12-10] VITALS (7 sets, daily range): BP systolic 153–159; BP diastolic 84–96; PULSE 68–95; TEMP 37–37.6; O2SAT 95–98
[2017-12-10] MEDS: ACETAMINOPHEN 500 MG TAB PO PRN ×2 (00:08→07:54)
[2017-12-10] MEDS: CEFEPIME IV 2,000 MG in SYRINGE 7.5 ML IV SCH ×2 (00:56→07:54)
[2017-12-10] MEDS: HEPARIN SOD 5000 UNIT/0.5 ML CARP SQ SCH ×3 (06:37→21:36)
[2017-12-10 07:08] LABS: CALCIUM 8.3 mg/dl (8.5-10.1); CREATININE 0.67 mg/dl (0.60-1.20); POTASSIUM 3.6 mmol/L (3.5-5.1)
[2017-12-10] MEDS: LACTOBACILLUS ACIDOPHILUS (FLORANEX) TAB PO SCH ×3 (07:52→17:33)
[2017-12-10] MEDS: LABETALOL HCL 100 MG TAB PO SCH ×2 (07:53→21:34)
[2017-12-10] MEDS: SODIUM CHLORIDE 0.9% 1000ML 1,000 ML IV SCH ×2 (07:58→21:39)
--- NOTE | 2017-12-10 09:00 | Progress Note ---
Subjective Date of Service: Dec 10, 2017. Subjective Pt evaluation today including: conversation w/ patient, chart review, lab review Voiding: no voiding problems 32 yo female s/p right ureteral stent. Pt reports she feels well this morning. Denies pain or n/v. Blood and urine cultures growing e coli resistant to fluoroquinolones. Noted to have a fever of 38.3C late last evening. She is currently afebrile. Problem List Medical Problems: (1) Hypertension Status: Chronic (2) Morbid obesity with BMI of 45.0-49.9, adult Status: Chronic (3) PCOS (polycystic ovarian syndrome) Status: Chronic (4) Right ureteral calculus Status: Acute Review of Systems Constitutional: No fever, No chills Respiratory: No shortness of breath Cardiac: No chest pain Abdomen: No pain, No nausea, No vomiting Female : No dysuria, No hematuria Heme: No abnormal bleeding/bruising Objective Vital Signs Date Time Temp Pulse Resp B/P (MAP) Pulse Ox O2 Delivery O2 Flow Rate FiO2 12/10/17 07:26 37.5 95 18 153/84 (107) 95 Room Air 12/10/17 00:52 37.2 12/09/17 23:50 96 Room Air 12/09/17 23:50 38.3 108 20 159/90 (113) 96 Room Air 12/09/17 19:06 36.8 12/09/17 16:30 38.3 99 18 156/89 (111) 93 Room Air 12/09/17 15:40 Room Air 12/09/17 15:29 38.1 111 18 167/94 (118) 94 Room Air 12/09/17 15:03 39.3 115 20 175/99 (124) 94 Room Air Physical Exam General Appearance: no apparent distress, + obese Eyes: normal inspection ENT: hearing grossly normal Neck: no JVD Respiratory/Chest: no respiratory distress, no accessory muscle use Cardiovascular: no JVD Extremities: normal inspection Neurologic/Psychiatric: alert, normal mood/affect, oriented x 3 Skin: normal color Laboratory Results Last 24 Hours Test 12/10/17 06:18 Sodium Level 139 mmol/L Potassium Level 3.6 mmol/L Chloride Level 107 mmol/L Carbon Dioxide Level 26 mmol/L Anion Gap 6.0 mmol/L Blood Urea Nitrogen 8 mg/dl Creatinine 0.67 mg/dl Est Creatinine Clear Calc Drug Dose 155.5 ml/min Estimated GFR () 132.9 Estimated GFR (Non- 114.7 BUN/Creatinine Ratio 11.5 Random Glucose 105 mg/dl Calcium Level 8.3 mg/dl Assessment and Plan POD #2 s/p right ureteral stent placement Pt doing well post-op. Continues to have some fevers. Recommend she remain inpatient until she has been afebrile for 24hrs. Hopefully home tomorrow. Would recommend transitioning to 14 days of Bactrim DS prior to d/c home. Definitive management of stones once infection has been adequately treated. Stones visualized on KUB. Consider ESWL vs URS as an outpatient. Will arrange for f/u with Dr. Davis to discuss. Will continue to follow along with primary service. Continued [facility] stay due to: fever, multiple IV medications needed, other ( bacteremia)
[2017-12-10] MEDS: CEFTRIAXONE SOD INJ 2,000 MG in DEXTROSE 5% 50ML 50 ML IV SCH (15:23)
--- NOTE | 2017-12-10 18:08 | Progress Note ---
Subjective Date of Service: Dec 10, 2017. Subjective Pt evaluation today including: conversation w/ patient, physical exam, chart review, lab review, review of inpatient medication list Pain: right flank pain has resolved PO Intake: normal Voiding: no voiding problems had fever overnight but now resolved feels better no further flank pain no dysuria normal appetite Problem List Medical Problems: (1) Hypertension Status: Chronic (2) Morbid obesity with BMI of 45.0-49.9, adult Status: Chronic (3) PCOS (polycystic ovarian syndrome) Status: Chronic (4) Right ureteral calculus Status: Acute Review of Systems Respiratory: No shortness of breath Cardiac: No chest pain Abdomen: No pain, No nausea, No vomiting Objective Vital Signs Date Time Temp Pulse Resp B/P (MAP) Pulse Ox O2 Delivery O2 Flow Rate FiO2 12/10/17 15:20 Room Air 12/10/17 14:45 37.0 76 16 153/95 (114) 98 Room Air 12/10/17 11:43 37.0 12/10/17 09:45 37.3 12/10/17 07:30 Room Air 12/10/17 07:26 37.5 95 18 153/84 (107) 95 Room Air 12/10/17 00:52 37.2 12/09/17 23:50 96 Room Air 12/09/17 23:50 38.3 108 20 159/90 (113) 96 Room Air 12/09/17 19:06 36.8 Physical Exam General Appearance: no apparent distress, + obese, + pertinent finding ( hirsute features) ENT: pharynx normal Neck: no JVD Respiratory/Chest: lungs clear, no respiratory distress, no accessory muscle use Cardiovascular: regular rate, rhythm, no gallop, no murmur Abdomen: normal bowel sounds, non tender, soft, no organomegaly Extremities: no pedal edema Neurologic/Psychiatric: alert, oriented x 3 Laboratory Results Last 24 Hours Test 12/10/17 06:18 Sodium Level 139 mmol/L Potassium Level 3.6 mmol/L Chloride Level 107 mmol/L Carbon Dioxide Level 26 mmol/L Anion Gap 6.0 mmol/L Blood Urea Nitrogen 8 mg/dl Creatinine 0.67 mg/dl Est Creatinine Clear Calc Drug Dose 155.5 ml/min Estimated GFR () 132.9 Estimated GFR (Non- 114.7 BUN/Creatinine Ratio 11.5 Random Glucose 105 mg/dl Calcium Level 8.3 mg/dl Assessment and Plan 32yo female - 1. e. coli UTI, right-sided pyelonephritis with possible pyelitis, and e. coli septicemia - sensitive to rocephin, ertapenem, and bactrim along w/ ancef. Will change cefepime to 2 grams daily of rocephin. Repeat blood cx's X 2 to date negative. Continue IVF, daily labs, pain control. Appreciate urology consultation and placement of right-sided stent. 2. large right-sided obstructing stone(s) - s/p stent placement, POD #2. Definitive stone treatment as an outpatient. 3. PCOS / evidence of insulin resistance / pre-T2DM - epic cupid analyst consult for nutritional counseling to help beck off full-blown T2DM. Patient aware of pre-DM. 4. DVT proph - heparin TID. 5. FEN - continue IVF, repeat BMP am, diet as tolerated. 6. HTN - still uncontrolled; increase labetalol. may need midline PICC for 2 weeks of IV rocephin as her e. coli was resistant to levaquin and cipro will d/w ID in the AM Continued [facility] stay due to: fever, multiple IV medications needed, other ( bacteremia)
[2017-12-11 04:08] VITALS: TEMP 37.2
[2017-12-11] MEDS: HEPARIN SOD 5000 UNIT/0.5 ML CARP SQ SCH ×2 (06:06→14:13)
[2017-12-11 06:49] LABS: HEMATOCRIT 32.9 % (37-47); HEMOGLOBIN 11.3 g/dL (12.0-16.0); MEAN CELL VOLUME 87.5 fL (80-100); MEAN CORPUSCULAR HEMOGLOBIN 30.1 pg (25-34); MEAN CORPUSCULAR HGB CONC 34.3 g/dl (32-36); MEAN PLATELET VOLUME 9.7 fL (7.4-10.4); PLATELET COUNT 157 K/uL (130-400); RED CELL DISTRIBUTION WIDTH CV 12.5 % (11.5-14.5); RED CELL DISTRIBUTION WIDTH SD 40.3 fL (36.4-46.3); WHITE BLOOD COUNT 7.13 K/uL (4.8-10.8)
[2017-12-11 07:15] LABS: CALCIUM 8.3 mg/dl (8.5-10.1); CREATININE 0.6 mg/dl (0.60-1.20); POTASSIUM 3.5 mmol/L (3.5-5.1)
[2017-12-11 07:33] VITALS: O2SAT 96
--- NOTE | 2017-12-11 08:28 | Progress Note ---
Subjective Date of Service: Dec 11, 2017. Subjective Pt evaluation today including: conversation w/ patient, chart review, lab review Voiding: no voiding problems 32 yo female s/p right ureteral stent placement. Pt denies pain this morning. Feels well. Temps have remained less than 100F x 24hrs. Problem List Medical Problems: (1) Hypertension Status: Chronic (2) Morbid obesity with BMI of 45.0-49.9, adult Status: Chronic (3) PCOS (polycystic ovarian syndrome) Status: Chronic (4) Right ureteral calculus Status: Acute Review of Systems Constitutional: No fever, No chills Respiratory: No shortness of breath Cardiac: No chest pain Abdomen: No pain, No nausea, No vomiting Female : No dysuria, No hematuria Heme: No abnormal bleeding/bruising Objective Vital Signs Date Time Temp Pulse Resp B/P (MAP) Pulse Ox O2 Delivery O2 Flow Rate FiO2 12/11/17 07:33 96 Room Air 12/11/17 04:08 37.2 12/10/17 23:35 Room Air 12/10/17 23:15 37.6 91 18 154/84 (107) 96 Room Air 12/10/17 21:31 68 159/96 (117) 12/10/17 15:20 Room Air 12/10/17 14:45 37.0 76 16 153/95 (114) 98 Room Air 12/10/17 11:43 37.0 12/10/17 09:45 37.3 Physical Exam General Appearance: no apparent distress, + obese Eyes: normal inspection ENT: hearing grossly normal Neck: no JVD Respiratory/Chest: no respiratory distress, no accessory muscle use Cardiovascular: no JVD Extremities: normal inspection Neurologic/Psychiatric: alert, normal mood/affect, oriented x 3 Skin: normal color Laboratory Results Last 24 Hours Test 12/11/17 06:03 White Blood Count 7.13 K/uL Red Blood Count 3.76 M/uL Hemoglobin 11.3 g/dL Hematocrit 32.9 % Mean Corpuscular Volume 87.5 fL Mean Corpuscular Hemoglobin 30.1 pg Mean Corpuscular Hemoglobin Concent 34.3 g/dl RDW Standard Deviation 40.3 fL RDW Coefficient of Variation 12.5 % Platelet Count 157 K/uL Mean Platelet Volume 9.7 fL Sodium Level 139 mmol/L Potassium Level 3.5 mmol/L Chloride Level 106 mmol/L Carbon Dioxide Level 27 mmol/L Anion Gap 6.0 mmol/L Blood Urea Nitrogen 6 mg/dl Creatinine 0.60 mg/dl Est Creatinine Clear Calc Drug Dose 173.7 ml/min Estimated GFR () 137.8 Estimated GFR (Non- 118.9 BUN/Creatinine Ratio 9.2 Random Glucose 103 mg/dl Calcium Level 8.3 mg/dl Assessment and Plan POD #3 s/p right ureteral stent placement Pt doing well post-op. Pt OK for d/c home today from perspective. Would recommend transitioning to 14 days of Bactrim DS prior to d/c home. Definitive management of stones once infection has been adequately treated. Stones visualized on KUB. Consider ESWL vs URS as an outpatient. Will arrange for f/u with Dr. Davis to discuss. No further management at this time. Recall PRN issues. Thanks for allowing us to participate in this pt's care.
[2017-12-11 08:36] VITALS: BP 140/91; PULSE 66; O2SAT 96
[2017-12-11] MEDS: LACTOBACILLUS ACIDOPHILUS (FLORANEX) TAB PO SCH ×2 (08:38→12:49)
[2017-12-11] MEDS: LABETALOL HCL 100 MG TAB PO SCH (08:39)
[2017-12-11 15:25] VITALS: BP 148/88; PULSE 58; TEMP 37.3; O2SAT 96
[2017-12-11] MEDS ORDERED: SULF800T23 PO (16:12)
[2017-12-11] MEDS ORDERED: LABE100T23 PO (16:12)
[2017-12-11] MEDS ORDERED: LCTX PO (16:12)
[2017-12-11] MEDS ORDERED: CEFT1INJ26 IV (16:12)
[2017-12-11] MEDS ORDERED: ACET-1311 PO ×2 (16:12→16:32)
[2017-12-11] MEDS: CEFTRIAXONE SOD INJ 2,000 MG in DEXTROSE 5% 50ML 50 ML IV SCH (16:15)
--- NOTE | 2017-12-11 16:32 | Discharge Instructions ---
Discharge Instructions Date of Service Dec 11, 2017. Admission Reason for Admission: UTI Discharge Discharge Diagnosis / Problem: Right-sided kidney stone, UTI, bacteremia ( bloodstream infection) Discharge Goals Goal(s): Learn about illness, Diagnostic testing, Therapeutic intervention Activity Recommendations Activity Limitations: as noted below Until your urinary stent is removed would avoid the following - * heavy lifting over 25 pounds * heavy exertional activities (going to the gym, difficult/heavy household tasks , etc) It is OK to shower at this time; however, keep the left arm PICC line covered and dry during the shower. Do NOT immerse the arm in water (do not take a tub bath or go swimming). When you return to work next week would avoid excessive use of the left arm; try to do more of your tasks with the right arm. Ok to drive in 48 hours. . Instructions / Follow-Up Instructions / Follow-Up From Dr. Cabrera - You were treated for UTI (urinary infection), right-sided kidney infection, and bloodstream infection. This all occurred as a result of the large, right-sided kidney stone that you have. A stent was placed in the right ureter because of the kidney stone. You are recovering nicely and your most recent blood cultures are negative. This means you have cleared the infection from the blood. 1. You have a stent in your right ureter. This will remain until the kidney stone is removed. 2. Please see Dr. Davis from [facility] within 1-2 weeks for management of the stone. 3. For your urinary tract infection / right kidney infection / bloodstream infection do the following - * take ceftriaxone (rocephin) 2 grams once daily via your PICC line for 7 days * start this TOMORROW on 12/12/17 * the antibiotics will be delivered to your home * AFTER the ceftriaxone course is completed please START bactrim (tmp/sulfa) 1 tablet by mouth twice a day; this was sent to [facility] * take the bactrim twice a day until the kidney stone is fully removed by the urologist * again, start the bactrim oral antibiotic AFTER your ceftriaxone course has been completed * take lactinex (probiotics) 3 times a day for the next 10 days; this will hopefully prevent diarrhea from the antibiotics 4. High blood pressure - please INCREASE your labetalol to 25mg TWICE A DAY. New prescription provided and sent to [facility] pharmacy. 5. Follow-up appointments - * see Dr. Davis, [facility], within 1-2 weeks * see your family doctor within 1 week for your blood pressure and for a hospital follow-up 6. Return to [facility] if - * you develop severe back pain or abdominal pain * you develop severe, frequent diarrhea * your fevers return (higher than 101) despite taking the antibiotics as directed * you develop a rash * inability to eat or drink or keep your medications down * any other concerns 7. For any pain would recommend taking [id number] tylenol 1000mg every 8 hours as needed. Maximum 3000mg in 24 hours. Current Hospital Diet Patient's current hospital diet: Regular Diet Discharge Diet Recommended Diet: Diabetes Type 2 Diet Procedures Procedures Performed: Cystoscopy with Right Stent and aspiration CAT scan of the abdomen & pelvis Pending Studies Studies pending at discharge: no Laboratory Results Hemoglobin A1c Test 12/09/17 07:57 Range/Units Estimated Average Glucose 120 mg/dl Hemoglobin A1c 5.8 H 4.5-5.6 % Medical Emergencies . Who to Call and When: Medical Emergencies: If at any time you feel your situation is an emergency, please call 911 immediately. . Non-Emergent Contact Non-Emergency issues call your: Primary Care Provider, Urologist Call Non-Emergent contact if: temperature is above 101, your pain is not controlled, your pain is worsening, your pain is unusual for you, your pain is concerning you, you have any medication questions . . "Provider Documentation" section prepared by Ziggy Cabrera. . VTE Core Measure Inpt VTE Proph given/why not?: SCD's
[2017-12-11 16:57] VITALS: BP 148/88; PULSE 58; TEMP 37.3; O2SAT 96
--- NOTE | 2017-12-12 10:38 | Discharge Summary ---
Discharge Summary Date of Service Dec 12, 2017. Discharge Summary Admission Date: Dec 08, 2017 at 13:37 Discharge Date: Dec 11, 2017 Discharge Disposition: Home with services Principal Diagnosis: e. coli septicemia/bacteremia 2nd to obstructing kidney stone Problems/Secondary Diagnoses: 1. pre-T2DM 2. HTN 3. morbid obesity, BMI 47 4. incidental finding of adrenal adenoma on imaging 5. incidental finding of possible sacroilitis on imaging but not symptomatic from such 6. PCOS Procedures: 1. CT abd/pelvis - FINDINGS: Lung bases are clear. The gallbladder surgically absent. There is no biliary ductal dilatation. A 1.2 cm low-attenuation left adrenal nodule represents an adenoma. Unenhanced images of the spleen, right adrenal gland and pancreas are unremarkable. A cannulated screw within the proximal left femur is noted. There is sclerosis along the sacral and iliac aspects of both sacroiliac joints with gas within the sacroiliac joints. The findings may reflect sacroiliitis. Note is made of moderate to severe right hydronephrosis due to a large right ureteropelvic junction calculus. This could reflect one large calculus or 2 adjacent calculi. In aggregate, these measure 3 x 1.5 x 0.8 cm. There is minimal adjacent gas within the inferior right renal pelvis. There is moderate right perinephric infiltration. 3 punctate distal right ureteral calculi measure up to 2 mm. There are several punctate right renal calculi. There are no left ureteral calculi. There is no evidence for a bowel obstruction. The appendix is normal. IMPRESSION: Moderate to severe right hydroureteronephrosis due to a right ureteropelvic junction calculus/calculi that measure 3 x 1.5 x 0.8 cm in aggregate. Trace associated gas within the inferior right renal pelvis raises the possibility of superimposed infectious pyelitis. Moderate right perinephric infiltration. Three punctate distal right ureteral calculi. 2. cystoscopy, Right Ureteral Stent placement, and aspiration of urine for culture - César Davis DO 3Xu SORENSON mid-line PICC placement Consultations: urology inbound customer service representative Medication Reconciliation New Medications: Ceftriaxone Sodium (Rocephin) 1 Gm Inj 2 GM IV DAILY for 7 Days, #7 VIAL 0 Refills Sulfa/Trimethoprim (Bactrim Ds 800MG/160MG) Tab 1 TAB PO BID for 14 Days, #28 TAB 0 Refills Lactobacillus Acidophilus (Floranex) 1 Tab Tab 4 TAB PO TIDM for 10 Days, #120 TAB 1 Refill Changed Medications: Acetaminophen (Tylenol) 325 Mg Tab 1000 MG PO Q8H PRN for Pain or Fever, #1 TAB (Changed from: 650 MG; Q4H) Labetalol Hcl (Labetalol Hcl) 100 Mg Tab 25 MG PO BID, #60 TABS 5 Refills (Changed from: QAM; Refills: ) Referrals At Discharge Follow up Referrals: Urologist Referral - Within 1-2 Weeks with César Davis D.O. Discharge Exam Physical Exam: General Appearance: no apparent distress, + obese, + pertinent finding ( hirsute features) ENT: pharynx normal Neck: no JVD Respiratory/Chest: lungs clear, no respiratory distress, no accessory muscle use Cardiovascular: regular rate, rhythm, no gallop, no murmur, normal peripheral pulses Abdomen / GI: normal bowel sounds, non tender, soft, no organomegaly, + pertinent finding Extremities: no pedal edema Neurologic/Psychiatric: alert, oriented x 3 Hospital Course HISTORY OF PRESENT ILLNESS: 32 year old female with past medical history of hypertension, morbid obesity, PCOS, section 3 and cholecystectomy who presented to the ED with severe right flank pain. She said that the pain started about a month ago but was intermittent and mild in nature. Today she woke up from sleep with severe stabbing pain 10/10 associated with nausea/vomiting. She vomited once. Also had chills and fever. Denied any history of previous renal stones. Denied any burning sensation in the urine, denied hematuria, and denied any urgency/frequency. In the ER she underwent CT scan of the abd/pelvis demonstrating a large, obstructing right-sided kidney stone and also radiographic findings concerning for possible right-sided pyelitis. HOSPITAL COURSE: 1. e. coli UTI, right-sided pyelonephritis with possible pyelitis, and e. coli septicemia/bacteremia - the patient's urine culture and blood cultures were ultimately positive for MDR e. coli. She clinically improved with IV antibiotic therapy and repeat blood cultures later in her stay were negative ensuring sterility. Her right flank pain resolved with supportive care and antibiotic therapy. It was decided to place a mid-line PICC and give 7 additional days of IV rocephin 2 grams daily following discharge. After the rocephin course is complete we recommended Bactrim DS 1 tablet BID until her kidney stone has been removed. Prior to discharge she had 24+ hours of no fever, normalization of her WBC count , and was eating/drinking well. 2. large right-sided obstructing stone(s) - in light of #1 the patient underwent emergent ureteral stent placement on the right by Dr. César Davis shortly after ER presentation. She will have definitive stone management in the initial 1-2 weeks after discharge. 3. PCOS / evidence of insulin resistance / pre-T2DM - inbound customer service representative consult was obtained for nutritional counseling to help beck off full-blown T2DM. Could consider metformin therapy in the future to help promote weight loss and reduce her insulin resistance. 4. HTN - BPs were high throughout her stay; her labetalol was increased to BID dosing. 5. adrenal adenoma - recommend endocrinology referral for this after discharge on a routine basis. The patient reported not having a PCP. In light of her PCOS, pre-DM, HTN, etc she will be set up with a new PCP after discharge to manage these chronic issues. Total Time Spent: Greater than 30 minutes This includes examination of the patient, discharge planning, medication reconciliation, and communication with other providers. Discharge Instructions Please refer to the electronic Patient Visit Report (Discharge Instructions) for additional information. Follow-Up 1. see PCP within 1 week - this will be established for the patient 2. see Dr. César Davis, [facility], within 1 week Additional Copies To Christiana Hays CRNP; César Davis D.O.
== END 2017-12-11 18:45 | disposition home health service (06) | DRG 872 ==
LOC: C.EDB 08:29 → C.MSN 13:37 → CANBEDREQ 14:26 → ENRESERV 15:18
PROVIDERS: ADMIT Internal Medicine; ATTEND Internal Medicine
PROC: 0T768DZ Dilation of Right Ureter with Intraluminal Device, Via Natural or Artificial Opening Endoscopic (ICD-10-PCS; principal; 2017-12-08 12:15)
DX: A41.51 Sepsis due to Escherichia coli [E. coli] (principal); N10 Acute pyelonephritis; N13.6 Pyonephrosis; Z68.42 Body mass index [BMI] 45.0-49.9, adult; B96.20 Unspecified Escherichia coli [E. coli] as the cause of diseases classified elsewhere; R73.03 Prediabetes; D35.00 Benign neoplasm of unspecified adrenal gland; M46.1 Sacroiliitis, not elsewhere classified; I10 Essential (primary) hypertension; E28.2 Polycystic ovarian syndrome; E66.01 Morbid (severe) obesity due to excess calories; F17.200 Nicotine dependence, unspecified, uncomplicated; Z79.899 Other long term (current) drug therapy; Z83.3 Family history of diabetes mellitus; Z80.42 Family history of malignant neoplasm of prostate

== ENCOUNTER → 2018-01-05 | Day surgery (SDC) | payer OTHER ==
[2017-12-19 08:21] VITALS: BMI 47.0
[~2018-01-05] VITALS: Ht 162.6 cm; Wt 123.6 kg
[~2018-01-05] MED LIST changes: +ATROPINE SULFATE 0.1 MG/ML 5ML SYR IV PRN; +CIPR-255 PO; +CIPROFLOXACIN / D5W 400 MG IV SCH; -CIPROFLOXACIN 400MG / 200ML D5W IV SCH; +Cysto-Conray II 17.2% 250ML BOTTLE ONE; +DEXAMETHASONE SOD INJ 4 MG/ML VIAL ONE; +EpHEDrine SULFATE INJ 50 MG/ML AMP IV PRN; +FENTANYL CITRATE INJ 50 MCG/1 ML 2 ML VIAL IV PRN; +FENTANYL CITRATE INJ 50 MCG/1 ML 2 ML VIAL ONE; +LABETALOL PO; +LACTATED RINGER'S 1000ML 1,000 ML IV SCH; +LIDOCAINE HCL 2% 2 ML VIAL (20MG/ML) ONE; +MIDAZOLAM HCL 1 MG/ML 2ML VIAL ONE; +MISCCAP80 PO; +ONDANSETRON INJ 2 MG/ML 2 ML VIAL IV PRN; +ONDANSETRON INJ 2 MG/ML 2 ML VIAL ONE; +OXYC7.5T65 PO; +OXYCODONE/ACETAMINOPHEN 7.5-325 TAB PO PRN; +PHEN-876 PO; +PROPOFOL IV EMULSION 10 MG/ML 20 ML VIAL IV ONE; +SULF800T23 PO; +TAMS0.4C38 PO
[2018-01-05 08:37] VITALS: BP 162/86; PULSE 78; TEMP 37.2; O2SAT 96; Ht 162.6 cm; Wt 123.6 kg
--- NOTE | 2018-01-05 09:04 | History & Physical Bridge Note ---
H&P Re-Evaluation Bridge Note: I have examined the patient, reviewed the History & Physical and in the interval since the performance of the History & Physical I have noted the following changes of clinical significance: No changes noted
--- NOTE | 2018-01-05 09:07 | Discharge Instructions ---
Discharge Instructions Date of Service Jan 05, 2018. Admission Reason for Admission: Nephrolithiasis Discharge Discharge Diagnosis / Problem: Right Stone Discharge Goals Goal(s): Decrease discomfort, Improve function Activity Recommendations Activity Limitations: resume your previous activity Lifting Limitations: gradually increase as tolerated Exercise/Sports Limitations: as tolerated, gradually increase as tolerated Shower/Bathe: no limitations . Instructions / Follow-Up Instructions / Follow-Up May have flank or groin pain and discomfort. May have blood in urine. Call for any fevers or chills. Current Hospital Diet Patient's current hospital diet: Discharge Diet Recommended Diet: Regular Diet Procedures Procedures Performed: Cystoscopy And Right Ureteroscopy and laser lithotripsy Pending Studies Studies pending at discharge: no Laboratory Results Hemoglobin A1c Test 12/09/17 07:57 Range/Units Estimated Average Glucose 120 mg/dl Hemoglobin A1c 5.8 H 4.5-5.6 % Medical Emergencies . Who to Call and When: Medical Emergencies: If at any time you feel your situation is an emergency, please call 911 immediately. . Non-Emergent Contact Non-Emergency issues call your: Primary Care Provider, Urologist Call Non-Emergent contact if: you have a fever, temperature is above 101, temperature is above 101.5, your pain is not controlled, your pain is worsening . . "Provider Documentation" section prepared by César Davis. .
--- NOTE | 2018-01-05 10:02 | [facility] Operative Report ---
Operative Report Operative Date Jan 05, 2018. Pre-Operative Diagnosis Right UPJ Stone, 1.5cm Post-Operative Diagnosis Same Procedure(s) Performed Cystoscopy with Right retrograde pyelogram, stent exchange, Ureteroscopy and laser lithotripsy with stone basket extraction Surgeon Ryan Estimated Blood Loss Minimal Findings Large right sided stone at UPJ Specimens Stone Drains 6 x26 Double J right Anesthesia Type General Complication(s) none Disposition Recovery Room / PACU Indications Large stone with pyelonephritis. Treated with stent. Here for stone treatment after discussing risks and benefits. Description of Procedure Patient was consented and brought back to the operating room. Patient was placed under anesthesia in the supine position and moved to the dorsal lithotomy position. Patient was prepped and draped in the regular sterile fashion. A time out was completed. A 30degree Cystoscope was placed into the bladder and the entire bladder was examined. The UO's were identified. The right stent was removed partially and a wire was placed. A second wire and ureteral access sheath was placed. A flexible scope was placed and the entire pelvis examined. The large stone was identified and pulverized to dust and small fragments. A larger fragment was removed. The stone was completely treated and the rest of the pelvis examined. No further issues or areas of concern. The scope and sheath were slowly removed. At this point, a retrograde pyelogram was completed. With the wire in place, a 6 x [26] Double J stent was placed. It was confirmed with fluoroscopy. With the stent in place, the bladder was emptied. The scope was removed. The patient was cleaned, aroused from anesthesia, and transferred to the pacu in stable condition having tolerated the procedure well with no complications. I was present and participated in all aspects of the procedure. The patient will be monitored in the PACU until transferred. I attest to the content of the Intraoperative Record and any orders documented therein. Any exceptions are noted below.
[2018-01-05 10:50] VITALS: BP 171/98; PULSE 77; TEMP 36.4; O2SAT 98
--- NOTE | 2018-01-05 10:58 | DIAGNOSTIC IMAGING REPORT ---
RETROGRADE INCLUDES KUB CLINICAL HISTORY: RT LASER/LITHOTRIPSY STENT EXCHANGE COMPARISON STUDY: CT of the abdomen and pelvis December 08, 2017 and KUB December 09, 2017. Fluoroscopy time: 66 seconds. FINDINGS: 3 fluoroscopic images from right retrograde exam were obtained. These images demonstrate ureteral stent exchange. There is moderate to severe right hydronephrosis. Cholecystectomy clips are noted. Filling defect within the right renal pelvis is noted. Lucency projects over a mid calyx of the right kidney. This likely reflects bowel gas however gas within the collecting system or a calculus could appear similar. IMPRESSION: Fluoroscopic images from right ureteral stent exchange. Moderate to severe right hydronephrosis. Electronically signed by: Constantino Hutchinson M.D. 01/05/2018 10:57 AM Dictated Date/Time: 01/05/2018 10:54 AM
--- NOTE | 2018-01-05 11:14 | Anesthesiology Progress Note ---
Anesthesia Post Op Note Date & Time Jan 05, 2018 at 11:14 Vital Signs Pain Intensity: 0 Vital Signs Past 12 Hours Date Time Temp Pulse Resp B/P (MAP) Pulse Ox O2 Delivery O2 Flow Rate FiO2 01/05/18 10:50 36.4 77 18 171/98 98 Room Air 01/05/18 10:46 138/79 01/05/18 10:44 70 13 01/05/18 10:44 70 13 97 01/05/18 10:41 132/82 01/05/18 10:39 73 14 97 01/05/18 10:39 75 14 01/05/18 10:36 122/89 01/05/18 10:34 72 17 01/05/18 10:34 72 17 97 01/05/18 10:33 73 21 01/05/18 10:33 36.3 70 18 122/89 (101) 97 Room Air 01/05/18 10:33 72 21 98 01/05/18 10:31 142/83 01/05/18 10:28 63 13 01/05/18 10:28 64 13 100 01/05/18 10:27 136/70 01/05/18 10:23 71 12 01/05/18 10:23 72 12 100 01/05/18 10:21 167/78 01/05/18 10:18 70 15 100 01/05/18 10:18 71 15 01/05/18 10:16 168/101 01/05/18 10:13 86 15 01/05/18 10:13 86 15 100 01/05/18 10:11 152/102 01/05/18 10:09 156/94 01/05/18 10:08 36. 86 16 156/94 100 Oxymask 10 01/05/18 08:37 37.2 78 18 162/86 (111) 96 Room Air Notes Mental Status: alert / awake / arousable, participated in evaluation Pt Amnestic to Procedure: Yes Nausea / Vomiting: adequately controlled Pain: adequately controlled Airway Patency, RR, SpO2: stable & adequate BP & HR: stable & adequate Hydration State: stable & adequate Anesthetic Complications: no major complications apparent
[2018-01-05 11:25] VITALS: BP 186/106; PULSE 68; TEMP 36.4; O2SAT 99
== END | disposition home or self-care (01) ==
LOC: C.ACU 08:12
PROVIDERS: ATTEND Urology
DX: N20.1 Calculus of ureter (principal); I10 Essential (primary) hypertension; F17.200 Nicotine dependence, unspecified, uncomplicated; Z79.899 Other long term (current) drug therapy; Z98.890 Other specified postprocedural states; E66.01 Morbid (severe) obesity due to excess calories; Z68.42 Body mass index [BMI] 45.0-49.9, adult; Z83.3 Family history of diabetes mellitus; Z80.42 Family history of malignant neoplasm of prostate; Z82.49 Family history of ischemic heart disease and other diseases of the circulatory system

== ENCOUNTER → 2018-01-13 | Outpatient (CLI) | payer OTHER ==
[~2018-01-13] MED LIST changes: -ATROPINE SULFATE 0.1 MG/ML 5ML SYR IV PRN; -CIPROFLOXACIN / D5W 400 MG IV SCH; -Cysto-Conray II 17.2% 250ML BOTTLE ONE; -DEXAMETHASONE SOD INJ 4 MG/ML VIAL ONE; -EpHEDrine SULFATE INJ 50 MG/ML AMP IV PRN; -FENTANYL CITRATE INJ 50 MCG/1 ML 2 ML VIAL IV PRN; -FENTANYL CITRATE INJ 50 MCG/1 ML 2 ML VIAL ONE; -LACTATED RINGER'S 1000ML 1,000 ML IV SCH; -LIDOCAINE HCL 2% 2 ML VIAL (20MG/ML) ONE; -MIDAZOLAM HCL 1 MG/ML 2ML VIAL ONE; -ONDANSETRON INJ 2 MG/ML 2 ML VIAL IV PRN; -ONDANSETRON INJ 2 MG/ML 2 ML VIAL ONE; -OXYCODONE/ACETAMINOPHEN 7.5-325 TAB PO PRN; -PROPOFOL IV EMULSION 10 MG/ML 20 ML VIAL IV ONE
--- NOTE | 2018-01-13 12:46 | DIAGNOSTIC IMAGING REPORT ---
KUB HISTORY: Follow-up study in a patient with right-sided nephrolithiasis STONES COMPARISON: KUB 12/09/2017, retrograde cystourethrogram 01/05/2018, CT 12/08/2017 FINDINGS: The bowel gas pattern is non-obstructive. There is no organomegaly. Interval removal of the right-sided ureteral stent. No renal or ureteral calculi are identified. The renal shadows are partially obscured by bowel gas. Calcifications of the pelvis suggest phleboliths. Cholecystectomy clips noted. Cannulated screw of the left femoral neck. No pneumoperitoneum or pneumatosis. No fracture. Minimal convex left curvature of the lumbar spine. IMPRESSION: No renal or ureteral calculi identified.. Electronically signed by: Milind Guzmán M.D. 01/13/2018 12:44 PM Dictated Date/Time: 01/13/2018 12:42 PM
== END | disposition home or self-care (01) ==
LOC: C.RAD 12:04
PROVIDERS: ATTEND Urology
DX: N20.0 Calculus of kidney (principal)

== ENCOUNTER → 2018-03-16 | Outpatient (CLI) | payer OTHER ==
--- NOTE | 2018-03-16 12:28 | DIAGNOSTIC IMAGING REPORT ---
(RENAL)RETROPERITON COMP CLINICAL HISTORY: 32 years-old Female presenting with N13.30 [id number]. TECHNIQUE: Real-time grayscale and limited color Doppler ultrasound imaging of the kidneys and bladder was performed. COMPARISON: CT from 12/08/2017 and plain radiograph from 01/13/2018. FINDINGS: Right kidney: Normal echogenicity of renal parenchyma. Right kidney measures 11.7 cm. Pelviectasis, which resolved with post void imaging. No hydronephrosis. Hyperechogenic 6 mm nonshadowing focus with twinkling artifact could suggest renal calculus in the interpolar region. Left kidney: Normal echogenicity of renal parenchyma. Left kidney measures 12.6 cm. No hydronephrosis. No convincing evidence of calculus or mass. Bladder: Normal. Bilateral ureteral jets present. Other: Hyperechogenicity of the liver suggests hepatic steatosis. IMPRESSION: 1. No hydronephrosis. 2. Questionable 6 mm nonobstructing right renal calculus. 3. Hepatic steatosis. Electronically signed by: Santos Banerjee M.D. 03/16/2018 12:27 PM Dictated Date/Time: 03/16/2018 12:23 PM
== END | disposition home or self-care (01) ==
LOC: C.ULTR 11:42
PROVIDERS: ATTEND Urology
DX: K76.0 Fatty (change of) liver, not elsewhere classified (principal)